=== PATIENT | male | born 1940 | race Caucasian/White ===

== ENCOUNTER 2016-11-21 09:14 | Inpatient (IN) | payer OTHER ==
--- NOTE | ~2016-11-21 | CN ---
Consultation Report [facility] [address] [place]. [address] NAME: JOSE OQUENDO : 36 STATUS : ADM IN [facility]#: [id number] AGE: 75 ADM/REG DATE : 11/21/16 MR#: [id number] REPORT SERV DATE: 11/22/16 DICTATED BY: JUAN MANUEL VILLANUEVA DATE: 11/22/16 REPORT STATUS : Draft TRANSCRIBED BY: MODL DATE: 11/22/16 CONSULTATION DATE OF CONSULTATION: REASON FOR CONSULTATION: Jose Oquendo is a 75-year-old male, who is admitted through the emergency room with pneumonia. Dr. Garcia in [place] [facility]. PCP: Ulices Gu M.D. HISTORY OF PRESENT ILLNESS: Over the last several days, the family has noted he has been getting weaker, short of breath and before admission developed a fever. He could not even get up to do his usual activity and usually, he is a self-care patient. REVIEW OF SYSTEMS: No chest pain or chest discomfort either from the patient or that the family remembers. The rest of it is difficult to get. PAST MEDICAL HISTORY: 1. History of CABG. 2. History of aortic valve replacement in 2003 with normal function on recent echo. 3. Hypertension, longstanding with moderate left ventricular hypertrophy on echocardiogram. 4. Hyperlipidemia, currently on simvastatin. 5. History of CVA. SOCIAL HISTORY: He is a self-care patient. He has strong family support. He does not drink or smoke. FAMILY HISTORY: Significant for history of congestive heart failure. No early heart disease is noted. PHYSICAL EXAMINATION: GENERAL: He is currently lethargic, but arousable. He is mildly febrile with a temperature of 100. He is resting comfortably with normal respiratory effort. LUNGS: Bilateral breath sounds are heard without rales. CARDIAC: No murmur, gallops, or rubs are appreciated. Rhythm is regular at this time. ABDOMEN: Soft and nontender. EXTREMITIES: No edema is noted. Extremities are warm. LABORATORY EVALUATION: Echocardiogram shows a normal left ventricular function. Potassium is low at 3.2 and it is being replaced. Troponin is elevated to 0.22. BNP is mildly Consultation Report [facility] [address] [place]. [address] NAME: JOSE OQUENDO SR : 38 STATUS : ADM IN PAT#: [id number] AGE: 75 ADM/REG DATE : 11/21/16 MR#: [id number] REPORT SERV DATE: 11/22/16 DICTATED BY: JUAN MANUEL VILLANUEVA DATE: 11/22/16 REPORT STATUS : Draft TRANSCRIBED BY: CHELI DATE: 11/22/16 elevated. White count is normal at 6.2. EKG shows a bout of atrial fibrillation. No acute changes are noted of ischemia. CONCLUSION: 1. Type B myocardial infarction with normal left ventricular function and no ischemic changes. Currently, we will continue on medical therapy with aspirin, beta-samanta, and statin. 2. Aortic valve replacement with adequate function on echocardiogram. 3. New paroxysmal atrial fibrillation, now in sinus rhythm. We will follow. 4. Anticoagulation, I will hold until mental status is resolved. 5. Hyperlipidemia. Continue on simvastatin. 6. Hypertension, moderate left ventricular hypertrophy, at this time. AUDRA/CHELI Juan Manuel Villanueva M.D. / [id number] CC: Camilla Johnson Lisa M
--- NOTE | ~2016-11-21 | HP ---
History And Physical [id number] [place]. [address] NAME: JOSE OQUENDO SR : 38 STATUS : ADM IN [facility]#: [id number] AGE: 75 ADM/REG DATE : 11/21/16 MR#: [id number] REPORT SERV DATE: 11/21/16 DICTATED BY: TERENCE KERNS DATE: 11/21/16 REPORT STATUS : Draft TRANSCRIBED BY: CHELI DATE: 11/21/16 DATE OF ADMISSION: 11/21/2016 CHIEF COMPLAINT: Fever and cough. HISTORY OF PRESENT ILLNESS: A 75-year-old male with a past medical history of coronary artery disease, hypertension, presents with family with a chief complaint of fever, chills, and dyspnea on exertion, which is new for the past 24 hours. His cough is nonproductive. Also, the patient has developed generalized weakness. He does not use any assistive devices at baseline, but it was hard to stand up and ambulate due to generalized weakness and new onset of cough and dyspnea on exertion. He was seen in the ER, found to have a temperature of a 100.7, seen by ER physician, Dr. Byrnes. His initial influenza swab was negative and the Hospitalist Service was called to admit the patient to the hospital. He denies any pains. No chest pain. No abdominal pain. No nausea or vomiting. No diarrhea. According to his and daughter, who is at bedside, the patient is up to date for his influenza and pneumonia vaccines. REVIEW OF SYSTEMS: Please refer to HPI. PAST MEDICAL HISTORY: Hypertension; hyperlipidemia; coronary artery disease/VA in 1998, status post CABG; GERD; peptic ulcer disease; diverticulosis; and was diagnosed with a light stroke in 2011 and a history of recurrent pneumonia, for which his last pneumonia episode was approximately 3 years ago. PAST SURGICAL HISTORY: CABG, aortic valve replacement in 2012, hand surgery, left foot surgery, hernia repair. FAMILY HISTORY: CHF in mother and father. SOCIAL HISTORY: Quit tobacco abuse in 1968 and smoked for approximately 12 years. No alcohol. No illicit drugs. Does not use any assistive devices for ambulation. Lives at home with his . He also has a daughter, who is at bedside. ALLERGIES: TO REGLAN. HOME MEDICATIONS: Please refer to MAR per pharmacy. PHYSICAL EXAMINATION: VITAL SIGNS: Temperature of 100.7; initial blood pressure was 174/80, now is at 140/112 with a pulse of 109; saturating 93% on 2 L. GENERAL: The patient is alert and oriented, but somewhat fidgety. HEENT: Pupils are equal, round, and reactive to light. Extraocular muscles are intact. Moist mucous membranes. CARDIOVASCULAR: S1, S2 with a 2/6 systolic murmur. Mild tachy. RESPIRATORY: Positive wheezing, more so on the right side, expiratory. No appreciated History And Physical [address] [address] NAME: JOSE OQUENDO SR : 36 STATUS : ADM IN [facility]#: [id number] AGE: 75 ADM/REG DATE : 11/21/16 MR#: [id number] REPORT SERV DATE: 11/21/16 DICTATED BY: TERENCE KERNS DATE: 11/21/16 REPORT STATUS : Draft TRANSCRIBED BY: CHELI DATE: 11/21/16 rales. No tachypnea. Positive dry cough. ABDOMEN: Positive bowel sounds. Soft, nontender. No rebound. No fluid wave. No distention. EXTREMITIES: 2+ pulse bilaterally. No edema. NEURO: Cranial nerves II through XII grossly intact. Moves all four extremities. No neuro focal deficits. Gait not assessed. SKIN: No appreciated new rashes. IMAGING: Chest x-ray with some mild haziness bilaterally per my interpretation. Per radiologist, the patient has asymmetric widening of the paratracheal stripe at the apex with a persistent retrocardiac opacity and left basilar consolidation, possibly. EKG with some sinus tachycardia. No ST elevation. Poor EKG. LABORATORY DATA: ABG; pH of 7.46, pCO2 of 37, pO2 of 91, with FiO2 of 28. Sodium 143, potassium 3.7 with a chloride of 106, bicarb of 28, BUN of 13, creatinine of 0.89 with a glucose of 100, calcium of 8.7, T bilirubin of 0.3 with an alkaline phosphatase of 48, ALT of 24, AST of 22, lactate of 1.4. White count of 9.1 with a hemoglobin of 14.3, platelet count 195. Influenza swab, nonreactive. UA with a specific gravity of 1.018, 30 of protein, negative blood, 1 red blood cell, 1 white blood cell. ASSESSMENT AND PLAN: 1. Community-acquired pneumonia. 2. Fever. 3. Tachycardia. 4. Debility. 5. History of hypertension. 6. History of coronary artery disease. We will admit, place him on telemetry. We will follow up with blood cultures and sputum culture. We will place on empiric antibiotics as well as bronchodilators. Also, the patient will require PT evaluation for his debility. We will closely monitor. ROGERIO/CHELI Terence Kerns M.D. / [id number] CC: Terence Kerns M.D.
--- NOTE | ~2016-11-21 | DS ---
Discharge Summary [facility] [address] [facility] [place]. [address] NAME: JOSE OQUENDO SR : 36 STATUS : DIS IN PAT#: [id number] AGE: 75 ADM/REG DATE : 11/21/16 MR#: [id number] REPORT SERV DATE: 11/27/16 DICTATED BY: WILLIAM SALGADO DATE: 11/27/16 REPORT STATUS : Draft TRANSCRIBED BY: MODL DATE: 11/27/16 ADMISSION DATE: 11/21/2016 DISCHARGE DATE: 11/27/2016 REASON FOR ADMISSION: Influenza, community-acquired pneumonia, and debility. HISTORY OF PRESENT ILLNESS: Please refer Dr. Brady's H and P dated 11/21/2016 for complete details regarding the patient's admission. In brief, the patient was admitted to the Hospitalist Service for above. HOSPITAL COURSE: The patient had an uncomplicated hospital course. He was initially diagnosed with community-acquired pneumonia. Sputum culture finally grew out MRSA. He was then switched over to doxycycline from Rocephin and azithromycin. He had wheezing on exam and he was tested for the flu. He was found to be flu positive. Dr. Brady has started him on Tamiflu. He has completed his treatment at the time of this dictation. Physical Therapy had worked with the patient and felt that he would best be served going to rehab facility to build up his strength. He did have some encephalopathy more so from his baseline dementia, which is now resolved. He is back to his baseline demented self. [facility] was consulted, as the patient had paroxysmal atrial fibrillation and Dr. Juan Manuel Villanueva had followed the patient at the hospitalization and recommended starting him on Eliquis, for which he has tolerated the medication very well. The patient reached maximal hospitalization. Will be discharged today in stable condition. DISCHARGE DIAGNOSES: Influenza A, now resolved; debility; paroxysmal atrial fibrillation, now in sinus; history of old cerebrovascular accident; toxic encephalopathy secondary to infection, now resolved; acute bronchitis secondary to methicillin-resistant Staphylococcus aureus, now resolving. PROCEDURES: Include consultation with Neurology and [facility], Dr. Juan Manuel Villanueva, CT scan of the brain without contrast, 2D echocardiogram, CT scan of the chest without contrast, chest x- ray. DISCHARGE MEDICATIONS: Include Eliquis 5 mg twice a day, aspirin 81 mg daily, doxycycline 100 mg twice a day for four days, lisinopril 20 mg daily, Prilosec 20 mg daily, Zocor 20 mg at bedtime, Lopressor 25 mg twice a day, ferrous sulfate 325 mg daily, ascorbic acid, vitamin C 500 mg daily, vitamin D3, and vitamin B12. The patient will be discharged to [facility]. This is Dr. William Salgado spending over 30 minutes on discharge planning and coordination of care on Mr. Oquendo. CLAUDIO/CHELI Discharge Summary [address] [address] NAME: JOSE OQUENDO : 38 STATUS : DIS IN PAT#: [id number] AGE: 75 ADM/REG DATE : 11/21/16 MR#: [id number] REPORT SERV DATE: 11/27/16 DICTATED BY: WILLIAM SALGADO DATE: 11/27/16 REPORT STATUS : Draft TRANSCRIBED BY: CHELI DATE: 11/27/16 William Salgado MD / [id number] CC: MD WILI Webb
[2016-11-21 09:01] LABS: ALLENS TEST Pos; BE (BASE EXCESS) 1.6 MEQ/L (0 +/- 2.5); CARBOXYHEMOGLOBIN 1.1 % (0-3); DEVICE NC; HCO3 (ACTUAL BICARBONATE) 25.2 MEQ/L (23-27); HEMOBLOGIN CONTENT 14.5 G/DL (14-18); INSTRUMENT SERIAL # 8087; METHEMOGLOBIN 0.2 % (0-3); O2 CONTENT 19.7 VOL% (18-24); PCO2 (CO2 TENSION) 37 MMHG (35-45); PO2 (O2 TENSION) 91 MMHG (79-93); SAMPLE Arterial; pH 7.46 (7.37-7.43)
[2016-11-21 09:12] LABS: BASOPHILS 0.2 %; BASOPHILS ABSOLUTE 0.02 10/3/uL (0.0-0.16); EOSINOPHILS 0.2 %; EOSINOPHILS ABSOLUTE 0.02 10/3/uL (0.0-0.53); HEMATOCRIT 42.9 % (40.0-51.0); HEMOGLOBIN 14.3 g/dL (13.6-17.8); IMMATURE GRANULOCYTES 0.1 %; IMMATURE GRANULOCYTES ABSOLUTE 0.01 10/3/uL (0.0-0.11); LYMPHOCYTES 13.1 %; MEAN CORPUS HGB CONC 33.3 g/dL (32.0-36.0); MEAN CORPUSCULAR HEMOGLOB 30.5 pg (26.0-34.0); MEAN CORPUSCULAR VOLUME 91.5 fL (80-100); MONOCYTES 3.4 %; MONOCYTES ABSOLUTE 0.31 10/3/uL (0.21-1.20); NEUTROPHILS ABSOLUTE 7.58 10/3/uL (2.02-8.40); PLATELET COUNT 195 10/3/uL (150-400); RBC DISTRIBUTION WIDTH 13.2 % (12.0-16.0); RED CELL COUNT 4.69 10/6/uL (4.7-6.1); WHITE BLOOD CELLS 9.1 10/3/uL (4.5-10.5)
[2016-11-21 09:14] LABS: MANUAL DIFF NO %
[~2016-11-21 09:14] MED LIST: ASAB PO; ATEN25 PO; COREG6 PO; HCTZ12.5 PO; IRON COMPLEX150 MG OR; IRON325 MG PO; PRILO PO; PRIN20 PO; V2 PO; VITAMIN D31000 UNIT PO; VYTORIN 10/10 T1 TAB PO
[2016-11-21 09:22] LABS: INFLUENZA A SCREEN NEGATIVE (NEGATIVE); INFLUENZA B SCREEN NEGATIVE (NEGATIVE)
[2016-11-21 09:33] LABS: LACTATE 1.4 MMOL/L (0.3-2.4)
[2016-11-21 09:33] LABS: A/G RATIO 1.1 (0.7-1.9); ALBUMIN 3.6 G/DL (3.5-5.0); ALKALINE PHOSPHATASE 48 U/L (45-117); BUN (BLOOD UREA NITROGEN) 13 MG/DL (6-23); CALCIUM, SERUM 8.7 MG/DL (8.5-10.4); CHLORIDE, SERUM 106 MMOL/L (96-112); CO2 (CARBON DIOXIDE) 28 MMOL/L (24-34); CREATININE 0.89 MG/DL (0.70-1.30); GFR AFRICAN AMERICAN 96 ML/MIN (>=60); GFR NON AFRICAN AMERICAN 82 ML/MIN (>=60); GLOBULIN 3.4 G/DL (2.5-4.1); GLUCOSE, SERUM 100 MG/DL (60-99); POTASSIUM, SERUM 3.7 MMOL/L (3.5-5.3); SGOT(AST) 22 U/L (5-40); SGPT(ALT) 24 U/L (5-65); SODIUM, SERUM 143 MMOL/L (135-148); TOTAL BILIRUBIN 0.3 MG/DL (0-1.2)
[2016-11-21] MEDS ORDERED: VITC500 PO (09:41)
[2016-11-21] MEDS ORDERED: FERROUS SULF325 M1 PO (09:41)
[2016-11-21] MEDS ORDERED: PRILO PO (09:42)
[2016-11-21] MEDS ORDERED: VITAMIN D31000 UNIT PO (09:42)
[2016-11-21] MEDS ORDERED: CYANO1000T PO (09:42)
[2016-11-21] MEDS ORDERED: HALF81 PO (09:42)
[2016-11-21] MEDS ORDERED: ZOCOR20 PO (09:43)
[2016-11-21] MEDS ORDERED: HYDROCHLOROT25 MG PO (09:43)
[2016-11-21] MEDS ORDERED: ZESTRIL20 MG PO (09:43)
[2016-11-21] MEDS ORDERED: BEN25 PO (09:44)
[2016-11-21] MEDS ORDERED: OTC NASAL SPRAY NAS (09:44)
[2016-11-21 10:53] LABS: ASCORBIC ACID (UR NOT ORDER) 40 (NEG); BILIRUBIN, URINE NEGATIVE (NEG); ER URINALYSIS TAT 0 Hrs 08 Mins; KETONE, URINE NEGATIVE (NEG); LEUKOCYTE ESTERASE(NOT OR NEG (NEG); NITRITE (URINE) NEG (NEG); WBC (NOT ORDERED) (RFLEX) 1 (0-5)
[2016-11-21 12:47] LABS: CPK 322 U/L (0-200)
[2016-11-21 12:49] LABS: TROPONIN I 0.07 NG/ML (<0.05)
[2016-11-22 00:33] LABS: CPK 1457 U/L (0-200)
[2016-11-22 00:37] LABS: CK-MB 3.1 NG/ML
[2016-11-22 04:54] LABS: BASOPHILS 0 %; EOSINOPHILS 0 %; HEMATOCRIT 41.7 % (40.0-51.0); IMMATURE GRANULOCYTES 0.3 %; IMMATURE GRANULOCYTES ABSOLUTE 0.02 10/3/uL (0.0-0.11); LYMPHOCYTES 13.1 %; LYMPHOCYTES ABSOLUTE 0.81 10/3/uL (0.67-4.30); MEAN CORPUS HGB CONC 33.6 g/dL (32.0-36.0); MEAN CORPUSCULAR VOLUME 92.5 fL (80-100); MEAN PLATELET VOLUME 10.3 fL (9.2-13.0); MONOCYTES 15.5 %; MONOCYTES ABSOLUTE 0.96 10/3/uL (0.21-1.20); NEUTROPHILS 71.1 %; NEUTROPHILS ABSOLUTE 4.39 10/3/uL (2.02-8.40); PLATELET COUNT 172 10/3/uL (150-400); RED CELL COUNT 4.51 10/6/uL (4.7-6.1); WHITE BLOOD CELLS 6.2 10/3/uL (4.5-10.5)
[2016-11-22 05:01] LABS: BUN (BLOOD UREA NITROGEN) 14 MG/DL (6-23); CALCIUM, SERUM 8.4 MG/DL (8.5-10.4); CHLORIDE, SERUM 102 MMOL/L (96-112); CO2 (CARBON DIOXIDE) 26 MMOL/L (24-34); CREATININE 0.89 MG/DL (0.70-1.30); GFR AFRICAN AMERICAN 96 ML/MIN (>=60); GFR NON AFRICAN AMERICAN 82 ML/MIN (>=60); GLUCOSE, SERUM 103 MG/DL (60-99); MANUAL DIFF NO %; POTASSIUM, SERUM 3.2 MMOL/L (3.5-5.3); SODIUM, SERUM 140 MMOL/L (135-148)
[2016-11-22 11:10] LABS: CPK 1757 U/L (0-200)
[2016-11-22 11:11] LABS: CK-MB 3.5 NG/ML; TROPONIN I 0.22 NG/ML (<0.05)
[2016-11-22 16:58] LABS: POTASSIUM, SERUM 3.8 MMOL/L (3.5-5.3)
[2016-11-22 17:43] LABS: INFLUENZA A SCREEN POSITIVE (NEGATIVE); INFLUENZA B SCREEN NEGATIVE (NEGATIVE)
[2016-11-24 03:03] LABS: BASOPHILS 0.4 %; BASOPHILS ABSOLUTE 0.01 10/3/uL (0.0-0.16); EOSINOPHILS 0.4 %; EOSINOPHILS ABSOLUTE 0.01 10/3/uL (0.0-0.53); HEMATOCRIT 42.4 % (40.0-51.0); HEMOGLOBIN 14.5 g/dL (13.6-17.8); LYMPHOCYTES 28.4 %; LYMPHOCYTES ABSOLUTE 0.78 10/3/uL (0.67-4.30); MEAN CORPUS HGB CONC 34.2 g/dL (32.0-36.0); MEAN CORPUSCULAR VOLUME 90.8 fL (80-100); MONOCYTES 17.1 %; MONOCYTES ABSOLUTE 0.47 10/3/uL (0.21-1.20); NEUTROPHILS 53.7 %; NEUTROPHILS ABSOLUTE 1.48 10/3/uL (2.02-8.40); PLATELET COUNT 163 10/3/uL (150-400); RBC DISTRIBUTION WIDTH 12.9 % (12.0-16.0); RED CELL COUNT 4.67 10/6/uL (4.7-6.1)
[2016-11-24 03:04] LABS: MANUAL DIFF NO %; WHITE BLOOD CELLS 2.8 10/3/uL (4.5-10.5)
[2016-11-24 03:21] LABS: PARTIAL THROMBO TIME > 150.0 SEC (22.5-37.2)
[2016-11-26 14:48] LABS: INFLUENZA A SCREEN NEGATIVE (NEGATIVE); INFLUENZA B SCREEN NEGATIVE (NEGATIVE)
[2017-05-04] MEDS ORDERED: LISINOPRIL40 MG PO (16:20)
[2017-05-04] MEDS ORDERED: LOP25 PO (16:21)
[2017-05-04] MEDS ORDERED: HYDROCHLOROT25 MG PO (16:21)
[2017-05-04] MEDS ORDERED: PRILO PO (16:21)
[2017-05-04] MEDS ORDERED: ZOCOR20 PO (16:22)
[2017-05-04] MEDS ORDERED: VITAMIN D31000 UNIT PO (16:22)
[2017-05-04] MEDS ORDERED: PRADAXA150 MG PO (16:22)
[2017-05-04] MEDS ORDERED: FERROUS SULF325 M1 PO (16:23)
[2017-05-04] MEDS ORDERED: ASAB PO (16:23)
[2017-05-04] MEDS ORDERED: VITAMIN B-121000 MC1 SL (16:23)
[2017-05-04] MEDS ORDERED: [UNRECOGNIZED DRUG - OTHER] PO (16:24)
[2017-05-04] MEDS ORDERED: [UNRECOGNIZED DRUG - OTHER] PO (16:24)
[2017-05-04] MEDS ORDERED: T PO (16:25)
[2017-05-04] MEDS ORDERED: OTC NASAL SPRAY NAS (16:26)
[2017-05-04] MEDS ORDERED: NITROSTAT0.4 MG SL (16:28)
[2017-05-07] MEDS ORDERED: TESS PO (15:37)
[2017-05-07] MEDS ORDERED: MUCINEX600 MG PO (15:37)
[2017-05-07] MEDS ORDERED: MAGOX4 PO (15:37)
[2017-05-07] MEDS ORDERED: KLOR-CON M2020 MEQ PO (15:38)
[2017-05-07] MEDS ORDERED: PROAIR HFA INH (15:39)
[2017-05-07] MEDS ORDERED: AUG875 PO (15:39)
== END 2016-11-27 14:45 | DRG 193 ==
LOC: ER 09:14 → 7NO 10:41
PROVIDERS: Emergency Medicine; Internal Medicine
DX: J11.00 Influenza due to unidentified influenza virus with unspecified type of pneumonia (principal); G92 Toxic encephalopathy; I48.0 Paroxysmal atrial fibrillation; I27.2 Other secondary pulmonary hypertension; R53.81 Other malaise; I10 Essential (primary) hypertension; I25.10 Atherosclerotic heart disease of native coronary artery without angina pectoris; Z95.1 Presence of aortocoronary bypass graft; Z95.2 Presence of prosthetic heart valve; E78.5 Hyperlipidemia, unspecified; Z79.899 Other long term (current) drug therapy; Z86.73 Personal history of transient ischemic attack (TIA), and cerebral infarction without residual deficits; Z87.01 Personal history of pneumonia (recurrent); Z87.891 Personal history of nicotine dependence; K44.9 Diaphragmatic hernia without obstruction or gangrene; J20.9 Acute bronchitis, unspecified
CPT/HCPCS: 70450; 71010; 71250; 80048; 80053; 81001; 82550; 82553; 82805; 82962; 83605; 83735; 83880; 84132; 84484; 85025; 85379; 85730; 87040; 87070; 87077; 87186; 87205; 87804; 93005; 93306; 94640; 96365; 96366; 97161-GP; 97530-GP; 99285; A9270-GY; J0456; J1956